=== PATIENT | female | born 1955 | race Caucasian/White ===

== ENCOUNTER → 2020-05-22 | Outpatient (CLI) | payer BC, OTHER ==
[2020-05-22 08:00] LABS: HEMOGLOBIN 13.1 gm/dl (12.3-15.3); RED BLOOD COUNT 4.23 M/UL (4.00-5.10); WHITE BLOOD COUNT 6.4 K/UL (4.5-11.0)
[2020-05-22 08:28] LABS: BUN/CREATININE RATIO 19 (0-10)
== END ==
LOC: LAB 07:33
DX: R73.03 Prediabetes (principal)
CPT/HCPCS: 36415; 80053; 83036; 85027

== ENCOUNTER 2020-11-16 14:42 | Emergency (ER) | payer BC, OTHER ==
[~2020-11-16] VITALS: Ht 153.7 cm; Wt 68.0 kg
[2020-11-16 17:13] LABS: HEMOGLOBIN 13.2 gm/dl (12.3-15.3); RED BLOOD COUNT 4.41 M/UL (4.00-5.10); WHITE BLOOD COUNT 6.4 K/UL (4.5-11.0)
[2020-11-16 17:58] LABS: BUN/CREATININE RATIO 14 (0-10)
== END 2020-11-16 20:30 | disposition home or self-care (01) ==
LOC: ER1 14:42
DX: Z23 Encounter for immunization (principal); U07.1 COVID-19
CPT/HCPCS: 71045; 80053; 85025; 85379; 99283; M0243